=== PATIENT | female | born 2005 | race Caucasian/White ===

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

== ENCOUNTER 2023-08-18 14:16 | Emergency (ER) | payer MEDICAID, SELFPAY ==
--- NOTE | ~2023-08-18 | US_ITS ---
EXAMINATION: US VENOUS WITH DOPPLER UPPER EXTREMITY, LEFT CLINICAL INFORMATION: Bruising, swelling pain COMPARISON: None available. TECHNIQUE: Ultrasound of the upper extremity is performed using compression sonography and color and pulse Doppler flow with assessment of augmentation of flow. There is also imaging and Doppler assessment of the jugular and subclavian veins. Spectral analysis with color-flow imaging is performed. FINDINGS: Respiratory variation, normal compression, and augmented flow are noted throughout the upper extremity including the axillary, brachial, cubital, and radial and ulnar veins. There is normal flow in the internal jugular and subclavian veins. There is no visible deep or superficial thrombophlebitis. If the patient's symptoms progress, a followup ultrasound in 5 -7 days might be of value to exclude proximal propagation from a nonvisualized distal arm vein. US/US venous duplex UE LT IMPRESSION: No DVT demonstrated in the left upper extremity
--- NOTE | 2023-08-18 14:45 | ED_ITS ---
HPI - General Adult General Chief complaint: General Medical Stated complaint: Donated plasma Wed reaction on L arm Related Data Previous Rx's Medication Instructions Recorded amoxicillin 875 mg-potassium 1 tab PO BID pharyngitis 10 days 07/10/21 clavulanate 125 mg tablet #20 tabs (Augmentin) Allergies Allergy/AdvReac Type Severity Reaction Status Date / Time No Known Allergies Allergy Verified 08/18/23 14:49 [facility] Past Medical History Medical History No known health problems Social History Social History Advance Directives: No Advance Directives Information Provided: No Physical Exam ED Vital Signs: BMI result Body Mass Index 33.6 Course Course Course Narrative: This is an RME: Additional HPI, ROS, PE not included below will be deferred to primary provider. This is a 18-year-old female presenting to the emergency department for evaluation of bruising, swelling pain, unable to bend at the elbow since donating plasma last Friday. She states that the bruising occurred 3 days after donating plasma. Increasing swelling and pain. Discussed case with attending physician, Dr. Bolanos, recommends coagulant studies. Further ER evaluation needed. Plan: Labs, ultrasound Reevaluation(s) Reevaluation #1: pt eloped prior to being fully evaluated Medical Decision Making Lab Data 08/18/23 15:01 08/18/23 15:01 Labs: Lab Results 08/18/23 Range/Units 15:01 WBC 9.3 (4.8-10.8) X10*3/uL RBC 4.63 (4.20-5.50) X10*6/uL Hgb 11.4 L (12.0-16.0) g/dl Hct 36.2 L (37.0-47.0) % MCV 78.2 L (80.0-98.0) fL MCH 24.6 L (27.0-33.0) pg MCHC 31.5 (31.0-35.0) g/dl RDW 15.1 (11.0-16.0) % Plt Count 304 (160-400) X10*3/uL MPV 10.6 (9.4-12.3) fL Immature Gran % (Auto) 0.6 H (0.0-0.4) % Neut % (Auto) 64.6 (45-73) % Lymph % (Auto) 26.0 (20-40) % [place] % (Auto) 4.8 (2-11) % Eos % (Auto) 3.6 (0-4) % Baso % (Auto) 0.4 (0-2) % Lymph # (Auto) 2.4 (1.2-4.9) X10*3/uL [place] # (Auto) 0.5 (0.1-1.2) X10*3/uL Eos # (Auto) 0.3 (0.0-0.4) X10*3/uL Baso # (Auto) 0.0 (0.0-0.2) X10*3/uL Abs Immat Gran (auto) 0.06 H (0.00-0.03) X10*3/uL Absolute Neuts (auto) 6.0 (2.0-8.3) x10*3/uL Absolute Nucleated RBC 0.000 (0.0-0.012) X10*3/uL Nucleated RBC % (auto) 0.0 (0.0-0.2) /100WBC PT 12.0 (11.1-13.3) SEC INR 1.0 (0.9-1.1) APTT 36.4 (26.0-36.4) SEC Sodium 139 (135-145) mmol/L Potassium 4.3 (3.3-5.1) mmol/L Chloride 107 (96-108) mmol/L Carbon Dioxide 25 (22-29) mmol/L Anion Gap 11 L (12-20) BUN 10 (9-16) mg/dL Creatinine 0.73 (0.5-1.4) mg/dL Estim Creat Clear Calc 127.8 Estimated GFR > 60 Random Glucose 88 (60-115) mg/dL Calcium 9.2 (8.4-10.2) mg/dL Discharge Plan Discharge Clinical Impression: Arm pain, left Patient Disposition: Left W/O Completing Treatment Prescriptions: No Action amoxicillin-pot clavulanate [Augmentin] 875-125 mg tablet 1 tab PO BID 10 Days Qty: 20 0RF Discharge Date/Time: 08/18/23 19:25
[2023-08-18 14:46] VITALS: BP 136/70; PULSE 74; RESP 18; TEMP 36.4; O2SAT 98; BMI 33.6
[2023-08-18 15:07] LABS: MANUAL DIFF FLAG NO
[2023-08-18 15:08] LABS: Basophils Percent Auto 0.4 % (0-2); Eosinophils Absolute Auto 0.3 X10*3/uL (0.0-0.4); Eosinophils Percent Auto 3.6 % (0-4); Hematocrit 36.2 % (37.0-47.0); Hemoglobin 11.4 g/dl (12.0-16.0); Imm Gran Abs Auto 0.06 X10*3/uL (0.00-0.03); Imm Gran Pct Auto 0.6 % (0.0-0.4); Lymphocytes Absolute Auto 2.4 X10*3/uL (1.2-4.9); Mean Corpuscular HGB Conc 31.5 g/dl (31.0-35.0); Mean Corpuscular Hemoglobin 24.6 pg (27.0-33.0); Mean Corpuscular Volume 78.2 fL (80.0-98.0); Mean Platelet Volume 10.6 fL (9.4-12.3); Monocytes Absolute Auto 0.5 X10*3/uL (0.1-1.2); Monocytes Percent Auto 4.8 % (2-11); Neutrophils Percent Auto 64.6 % (45-73); Platelet Count 304 X10*3/uL (160-400); Red Blood Count 4.63 X10*6/uL (4.20-5.50); Red Cell Distribution Width 15.1 % (11.0-16.0); White Blood Count 9.3 X10*3/uL (4.8-10.8)
[2023-08-18 15:15] LABS: Partial Thromboplastin Time 36.4 SEC (26.0-36.4)
[2023-08-18 15:23] LABS: Anion Gap 11 (12-20); Blood Urea Nitrogen 10 mg/dL (9-16); Calcium 9.2 mg/dL (8.4-10.2); Carbon Dioxide 25 mmol/L (22-29); Chloride 107 mmol/L (96-108); Creatinine Clr Calc Pharmacy 127.8; Estimated Glomerular Filt Rate > 60; Glucose Random 88 mg/dL (60-115); Potassium 4.3 mmol/L (3.3-5.1); Sodium 139 mmol/L (135-145)
== END 2023-08-18 19:25 | disposition left against medical advice (07) ==
PROVIDERS: Physician Assistant Medical; Emergency Provider Emergency Medicine
DX: M79.602 Pain in left arm (principal); R60.0 Localized edema; Z79.899 Other long term (current) drug therapy
CPT/HCPCS: 36415; 80048; 85025; 85610; 85730; 93971; 99281; 99284

== ENCOUNTER 2024-09-09 04:19 | Emergency (ER) | payer SELFPAY ==
[2024-09-09 04:24] VITALS: BP 129/60; PULSE 84; RESP 16; TEMP 36.8; O2SAT 98; BMI 35.4
[2024-09-09 04:42] LABS: Basophils Absolute Auto 0.1 X10*3/uL (0.0-0.2); Basophils Percent Auto 0.3 % (0-2); Eosinophils Absolute Auto 0.2 X10*3/uL (0.0-0.4); Eosinophils Percent Auto 1.4 % (0-4); Hematocrit 35.5 % (37.0-47.0); Imm Gran Abs Auto 0.07 X10*3/uL (0.00-0.03); Imm Gran Pct Auto 0.4 % (0.0-0.4); Lymphocytes Absolute Auto 4.1 X10*3/uL (1.2-4.9); Lymphocytes Percent Auto 26.2 % (20-40); MANUAL DIFF FLAG NO; Mean Corpuscular Hemoglobin 21.5 pg (27.0-33.0); Mean Corpuscular Volume 69.5 fL (80.0-98.0); Mean Platelet Volume 10.6 fL (9.4-12.3); Monocytes Absolute Auto 0.9 X10*3/uL (0.1-1.2); Monocytes Percent Auto 5.5 % (2-11); Neutrophils Absolute Auto 10.4 x10*3/uL (2.0-8.3); Neutrophils Percent Auto 66.2 % (45-73); Platelet Count 341 X10*3/uL (160-400); Red Blood Count 5.11 X10*6/uL (4.20-5.50); White Blood Count 15.7 X10*3/uL (4.8-10.8)
[2024-09-09 04:44] LABS: Appearance Urine Clear; Color Urine Yellow; Glucose Urine UA Negative (Negative); Leukocyte Esterase Urine Moderate (2+) (Negative); Nitrite Urine Positive (Negative); UMIC TRIGGER UACC YES; Urine Blood Negative (Negative); Urine Ketones Negative (Negative); Urine Protein Negative (Neg-Trace)
[2024-09-09 04:45] LABS: UPreg QC Valid YES; Urine Pregnancy NEGATIVE (NEGATIVE)
[2024-09-09 04:48] LABS: Bacteria Urine 3+ (None Seen); Hyaline Casts Urine 0-2 /LPF (0-2); RBC Urine 0-2 /HPF (0-2); UACC Culture Trigger YES; WBC Urine 21-50 /HPF (0-5)
--- NOTE | 2024-09-09 04:48 | PC.NURSE ---
Pt a&ox3, no signs of distress. Pt reports I think I have a UTI Pt reports flank pain, and dysuria, denies n/v. Pts family at bedside Plan of care ongoing
[2024-09-09 05:10] LABS: Alanine Aminotransferase 13 U/L (0-31); Albumin Level 4.3 g/dL (3.5-5.0); Alkaline Phosphatase 74 U/L (39-117); Anion Gap 14 (12-20); Aspartate Amino Transferase 15 U/L (5-31); Bilirubin Total 0.2 mg/dL (0.0-1.0); Blood Urea Nitrogen 11 mg/dL (9-16); Calcium 9.5 mg/dL (8.4-10.2); Carbon Dioxide 20 mmol/L (22-29); Chloride 107 mmol/L (96-108); Creatinine Clr Calc Pharmacy 135.9; Estimated Glomerular Filt Rate > 60; Glucose Random 95 mg/dL (60-115); Potassium 3.7 mmol/L (3.3-5.1); Sodium 137 mmol/L (135-145); Total Protein 7.6 g/dL (6.5-8.0)
[2024-09-09 06:00] VITALS: BP 123/77; PULSE 71; RESP 16; TEMP 36.9; O2SAT 99
--- NOTE | 2024-09-09 06:59 | ED_ITS ---
HPI - Female Genitourinary General Chief complaint: Urogenital-Female Stated complaint: kidney pain, UTI Time Seen by Provider: 09/09/24 06:30 Source: patient Mode of arrival: ambulatory Limitations: no limitations History of Present Illness ED Provider: Denilson Rosa PA-C HPI Narrative: 19 yo female with no significant medical history presents to the ER for evaluation of dysuria, foul smelling urine, cloudy urine, urgency and frequency. She reports symptoms initally started 2 months ago for which she took OTC meds with improvement. Two weeks ago symptoms worsened. She developed low back pain and nausea. No vomiting or fevers. No vaginal discharge. No history of frequent UTIs. She does not have health insurance so delayed seeking care. Denies chance of . MD elicited complaint: UTI Onset (ago): week(s) Location of symptoms: suprapubic and urethra Severity: severe Female Urogenital Radiation: Suprapubic Quality of pain: dull and burning Consistency: constant Vaginal discharge: none Vaginal bleeding: none Urinary symptoms: Dysuria, Urgency, Frequency, Hematuria and Foul Smelling Urine Exacerbating factors: urination Relieving factors: none Associated symptoms: nausea and back pain Treatment prior to arrival: OTC urinary analgesics Sexual activity: Yes Patient : No Related Data Previous Rx's ?Medication ?Instructions ?Recorded amoxicillin 875 mg-potassium 1 tab PO BID pharyngitis 10 days 07/10/21 clavulanate 125 mg tablet #20 tabs (Augmentin) cefuroxime axetil 250 mg tablet 250 mg PO BID 7 days #14 tabs 09/09/24 Allergies Allergy/AdvReac Type Severity Reaction Status Date / Time No Known Allergies Allergy Verified 09/09/24 04:28 Review of Systems 2 Review of Systems: Yes all other systems are reviewed and are negative PMFSH Past Medical History Medical History No known health problems Social History Social History Smoked in Last 30 Days: No Use of substances other than those prescribed or required for medical reasons: Yes Substance Use Type: Marijuana Advance Directives: No Advance Directives Information Provided: No Physical Exam 2 Vital Signs: Vital Signs: Last Vital Signs Temp 98.4 F 09/09/24 06:00 Pulse 71 09/09/24 06:00 Resp 16 09/09/24 06:00 BP 123/77 09/09/24 06:00 Pulse Ox 99 09/09/24 06:00 O2 Del Method Room Air 09/09/24 06:00 BMI result Body Mass Index 35.4 Appearance: Alert. Oriented X3. No acute distress. Head: normocephalic, atraumatic. Eyes: Pupils equal, round and reactive to light. ENT: Pharynx normal. No tonsillar swelling or exudate. Neck: Normal inspection. Neck supple. CVS: Normal heart rate and rhythm. Pulses normal. Respiratory: No respiratory distress. Breath sounds normal. Abdomen: Soft and nontender. +BS x4. No CVA tenderness Skin: Skin warm and dry. Normal skin color. Normal skin turgor. No rashes. Extremities: No lower extremity edema. No joint swelling. Neuro/psych: Oriented X 3. No motor deficit. No sensory deficit. CN II-XII intact. Normal speech and cognition. Medical Decision Making Medical Decision Making [facility] Narrative: 19 yo female presenting with UTI symptoms x2 weeks. No fever or tachycardia on arrival. Labs showing leukocytosis. Renal function normal. UA positive for infection, negative for . No CVA tenderness on exam. PE reassuring. Will treat with ceftin x7 days. patient counseled. return precautions discussed. stable for d/c home Differential Diagnosis Differential Diagnoses: The differential diagnosis associated with the presentation includes UTI, pyelonephritis, STI, Admission/Observation Consideration of admission/observation: Escalation of care including admission/observation considered Lab Data [facility] Lab Attestation statement: I reviewed the patient's lab results. leukocytosis, anemia, normal renal function 09/09/24 04:36 09/09/24 04:36 Labs: Lab Results 09/09/24 Range/Units 04:36 WBC 15.7 H (4.8-10.8) X10*3/uL RBC 5.11 (4.20-5.50) X10*6/uL Hgb 11.0 L (12.0-16.0) g/dl Hct 35.5 L (37.0-47.0) % MCV 69.5 L (80.0-98.0) fL MCH 21.5 L (27.0-33.0) pg MCHC 31.0 (31.0-35.0) g/dl RDW 18.0 H (11.0-16.0) % Plt Count 341 (160-400) X10*3/uL MPV 10.6 (9.4-12.3) fL Immature Gran % (Auto) 0.4 (0.0-0.4) % Neut % (Auto) 66.2 (45-73) % Lymph % (Auto) 26.2 (20-40) % [place] % (Auto) 5.5 (2-11) % Eos % (Auto) 1.4 (0-4) % Baso % (Auto) 0.3 (0-2) % Lymph # (Auto) 4.1 (1.2-4.9) X10*3/uL [place] # (Auto) 0.9 (0.1-1.2) X10*3/uL Eos # (Auto) 0.2 (0.0-0.4) X10*3/uL Baso # (Auto) 0.1 (0.0-0.2) X10*3/uL Abs Immat Gran (auto) 0.07 H (0.00-0.03) X10*3/uL Absolute Neuts (auto) 10.4 H (2.0-8.3) x10*3/uL Absolute Nucleated RBC 0.000 (0.0-0.012) X10*3/uL Nucleated RBC % (auto) 0.0 (0.0-0.2) /100WBC Sodium 137 (135-145) mmol/L Potassium 3.7 (3.3-5.1) mmol/L Chloride 107 (96-108) mmol/L Carbon Dioxide 20 L (22-29) mmol/L Anion Gap 14 (12-20) BUN 11 (9-16) mg/dL Creatinine 0.70 (0.5-1.4) mg/dL Estim Creat Clear Calc 135.9 Estimated GFR > 60 Random Glucose 95 (60-115) mg/dL Calcium 9.5 (8.4-10.2) mg/dL Total Bilirubin 0.2 (0.0-1.0) mg/dL AST 15 (5-31) U/L ALT 13 (0-31) U/L Alkaline Phosphatase 74 (39-117) U/L Total Protein 7.6 (6.5-8.0) g/dL Albumin 4.3 (3.5-5.0) g/dL Urine Color Yellow Urine Appearance Clear Urine pH 7.0 (5.0-9.0) Ur Specific [place] 1.020 (1.005-1.025) Urine Protein Negative (Neg-Trace) mg/dL Urine Glucose (UA) Negative (Negative) mg/dL Urine Ketones Negative (Negative) mg/dL Urine Blood Negative (Negative) Urine Nitrite Positive H (Negative) Ur Leukocyte Esterase Moderate (2+) H (Negative) Urine RBC 0-2 (0-2) /HPF Urine WBC 21-50 H (0-5) /HPF Ur Squamous Epith Cells 11-20 (0-2) /HPF Urine Bacteria 3+ (None Seen) Hyaline Casts 0-2 (0-2) /LPF Urine Test NEGATIVE (NEGATIVE) Independent Historian Clinical information obtained from an independent historian. History obtained from or confirmed by: Spouse External Record Review External record reviewed: Outpatient record and Prior outpatient labs Prescription Management I considered prescription management with: Pain Medication and Antibiotic Social Determinants Patient?s care significantly limited by Social Determinants of Health including: Other Social Determinant of Health (no health insurance) Critical Care Time Critical Care Time Critical Care Time: No Discharge Plan Discharge Clinical Impression: Urinary tract infection Patient Disposition: Home, Self-Care Instructions: Urinary Tract Infection in Women (DC) Additional Instructions: You were found to have a UTI today. Take the prescribed antibiotics as directed. Take the next dose around 07:00 o'clock tonight. Your given the 1st dose today in the ER. Drink plenty of fluids. No sexual activity until your antibiotics are completed and all your symptoms are completely resolved. If you develop new or worsening symptoms call 911 or come back to the ER for further evaluation. Prescriptions: New cefuroxime axetil 250 mg tablet 250 mg PO BID 7 Days Qty: 14 0RF No Action amoxicillin-pot clavulanate [Augmentin] 875-125 mg tablet 1 tab PO BID 10 Days Qty: 20 0RF Stand Alone Forms: Work/School Release Print Language: Cymro
[2024-09-09] MEDS: cefuroxime axetiL 500 MG TABLET PO (07:09)
[2024-09-09 07:11] VITALS: BP 123/77; PULSE 71; RESP 16; TEMP 36.9; O2SAT 99
== END 2024-09-09 07:12 | disposition home or self-care (01) ==
PROVIDERS: Emergency Provider Emergency Medicine
DX: N39.0 Urinary tract infection, site not specified (principal); N23 Unspecified renal colic; R35.0 Frequency of micturition; R30.0 Dysuria; R11.0 Nausea; M54.50 Low back pain, unspecified; R31.9 Hematuria, unspecified
CPT/HCPCS: 36415; 80053; 81001; 81025; 85025; 87086; 99283; 99284

== ENCOUNTER 2024-11-14 22:34 | Emergency (ER) | payer OTHER, SELFPAY ==
[2024-11-14 22:36] VITALS: BP 115/66; PULSE 84; RESP 18; TEMP 36.3; O2SAT 98; BMI 36.3
[2024-11-14 22:53] LABS: IDNOW Serial# 6674DD1D; Strep A Nucleic Acid Negative (Negative)
[2024-11-14 23:23] LABS: Influenza A PCR NEGATIVE (Negative); Influenza B PCR NEGATIVE (Negative); Resp Syncy Virus RNA Qual PCR NEGATIVE (Negative); SARS COV2 PCR INHOUSE NEGATIVE (Negative)
[2024-11-15 00:31] VITALS: BP 121/63; PULSE 81; RESP 16; TEMP 36.6; O2SAT 100
--- NOTE | 2024-11-15 00:34 | ED.URI ---
HPI - URI/Sore Throat General Chief Complaint: Upper Respiratory Symptoms Stated Complaint: cold symptoms Time Seen by Provider: 11/15/24 00:34 Source: patient Mode of arrival: ambulatory History of Present Illness ED Provider: HPI Narrative: Patient has been complaining of nasal congestion sore throat for last 1 month with rotation cough no fever no chills patient has had COVID flu RSV and strep test before my evaluation which was negative Related Data Previous Rx's ?Medication ?Instructions ?Recorded amoxicillin 875 mg-potassium 1 tab PO BID pharyngitis 10 days 07/10/21 clavulanate 125 mg tablet #20 tabs (Augmentin) cefuroxime axetil 250 mg tablet 250 mg PO BID 7 days #14 tabs 09/09/24 amoxicillin 875 mg-potassium 1 tab PO BID #20 tabs 11/15/24 clavulanate 125 mg tablet Allergies Allergy/AdvReac Type Severity Reaction Status Date / Time No Known Allergies Allergy Verified 11/14/24 22:39 Review of Systems Review of Systems: Yes all other systems are reviewed and are negative [facility] Past Medical History Medical History No known health problems Social History Social History Alcohol intake: never Substance Use Type: Marijuana Physical Exam Vital Signs: Vital Signs: Last Vital Signs Temp 97.9 F 11/15/24 00:31 Pulse 81 11/15/24 00:31 Resp 16 11/15/24 00:31 BP 121/63 11/15/24 00:31 Pulse Ox 100 11/15/24 00:31 O2 Del Method Room Air 11/15/24 00:31 BMI result Body Mass Index 36.3 Appearance: Alert. Oriented X3. No acute distress. ENT: Pharynx normal. Oral Mucosa moist inflamed nasal turbinate Neck: Normal inspection. Neck supple. CVS: Normal heart rate and rhythm. Pulses normal. Respiratory: No respiratory distress. Equal air entry bilateral, no wheezing/rales/rhonchi Skin: Skin warm and dry. Normal skin color. Normal skin turgor. Extremities: No lower extremity edema. Neuro: Oriented X 3. Medical Decision Making Lab Data MDM Lab Attestation statement: I reviewed the patient's lab results. Labs: Lab Results 11/14/24 Range/Units 22:41 Influenza Type A (PCR) NEGATIVE (Negative) Influenza Type B (PCR) NEGATIVE (Negative) RSV RNA Qual (PCR) NEGATIVE (Negative) SARS-CoV-2 RNA (RT-PCR) NEGATIVE (Negative) S. pyogenes GrpA ELI Negative (Negative) Discharge Plan Discharge Clinical Impression: Acute rhinosinusitis Patient Disposition: Home, Self-Care Instructions: Rhinosinusitis (DC) Additional Instructions: Take antibiotics as prescribed Follow with your PCP if not better Prescriptions: New amoxicillin-pot clavulanate 875-125 mg tablet 1 tab PO BID Qty: 20 0RF No Action amoxicillin-pot clavulanate [Augmentin] 875-125 mg tablet 1 tab PO BID 10 Days Qty: 20 0RF cefuroxime axetil 250 mg tablet 250 mg PO BID 7 Days Qty: 14 0RF Print Language: Solomon Islander
--- OUTSIDE RECORDS SUMMARY | 2024-11-15 00:40 | XMS_ITS | Encounter Summary ---
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 Name Role Phone Nadiya Sharp MD Primary Care Provider [phone] Reason for Visit * Reason Onset Date Comments new patient 11/14/2023 Encounter Details Date Type Department Care Team ([facility] st Contact Info) Description 11/14/2023 Telephone [facility] [address] [place] [address] Nadiya Sharp MD [address] [place] [address] new patient Social History Tobacco Use Types Packs/Day Years Used Date Smoking Tobacco: Never Assessed Comments Unknown Sex and Gender Information Value Date Recorded Sex Assigned at Female 08/19/2022 10:20 AM EDT Legal Sex Female 10:20 AM EDT Gender Identity Not on file Sexual Orientation Straight 08/19/2022 10 :20 AM EDT documented as of this encounter Miscellaneous Notes * Telephone Encounter - Danielle Shay - 11/14/2023 10:05 AM EST Tc from pt requesting a PE appt needs for school. Pt last seen on 08/19/[address] Leger. Presales Engineer booked pt NEW PATIENT appt for 11/17/23 @ 1pm with SUPERVISOR WEAVING Randi Denney. Pt is a returning patient. documented in this encounter Plan of Treatment Not on file documented as of this encounter Visit Diagnoses Not on filedocumented in this encounter Care Teams Rubber Extrusion Machine Operator Relationship Specialty Start Date End Date Nadiya Sharp MD [address] [place] [id number] PCP - General Pediatrics 03/08/20 11/19/23 documented as of this encounter
[2024-11-15] MEDS: Amoxicillin/Potassium Clav 875 MG TABLET PO (00:50)
[2024-11-15 00:52] VITALS: BP 121/63; PULSE 81; RESP 16; TEMP 36.6; O2SAT 100
== END 2024-11-15 00:52 | disposition home or self-care (01) ==
PROVIDERS: Emergency Provider Internal Medicine
DX: J01.90 Acute sinusitis, unspecified (principal); J02.9 Acute pharyngitis, unspecified; R05.9 Cough, unspecified; Z03.818 Encounter for observation for suspected exposure to other biological agents ruled out
CPT/HCPCS: 0241U; 87651; 99283; 99284

== ENCOUNTER 2025-07-25 17:21 | Emergency (ER) | payer OTHER, SELFPAY ==
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
[2025-07-25 17:44] VITALS: BP 148/72; PULSE 71; RESP 16; TEMP 36.2; O2SAT 98; BMI 35.9
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
--- OUTSIDE RECORDS SUMMARY | 2025-07-25 19:32 | XMS_ITS | Clinical Summary ---
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 Role Phone Unavailable Primary Care Provider Unavailabl e Social History Tobacco Use Types Packs/Day Years Used Date Smoking Tobacco: Never Assessed Comments Unknown Sex and Gender Information Value Date Recorded Sex Assigned at Female 08/19/2022 10:20 AM EDT Legal Sex Female 10:20 AM EDT Gender Identity Not on file Sexual Orientation Straight 08/19/2022 10 :20 AM EDT Plan of Treatment Health Maintenance Due Date Last Done Comments Chlamydia and Gonorrhea Screening 2003 Depression Screening 2003 HIV Screening 2003 SDOH Screening 2003 Disability Screening 2003 Alcohol/Substance Use Screening 2015 Tobacco Screening 2015 Family Planning (PISQ) 2018 Meningococcal B Vaccine (1 of 2 - Standard) 2019 Hepatitis C Screening 2021 Pap Smear 2024 COVID-19 Vaccine ( season) 2025 03/08/2021, 02/15/2021 Influenza Vaccine (#1) 2025 6, 07/06/2015, 07/14/2009 DTaP/Tdap/Td Vaccines (6 - Td or Tdap) 07/06/2025 07/06/2015, 11/17/2009, 05/18/2009, Additional history exists Zoster Vaccines (1 of 2) 2053 RSV Patients and Patients Aged 60 years or older (1 - 1-dose 75+ series) 2078 Hepatitis B Vaccines Completed 05/13/2009, 02/02/2009, 12/19/2008, Additional history exists Hepatitis A Vaccines Completed 07/14/2009, 12/20/19 09 Meningococcal Vaccine Aged Out 07/06/2015 No tim ellen eligible based on patient's age to complete this topic HPV Vaccines Completed 08/19/2016, 08/20, 07/06/2015 IPV Vaccines Completed 08/19/2016, 04/21, 02/02/2009, Additional history exists HIB Vaccines Aged Out No longer eligi ble based on patient's age to complete this topic Pneumococcal Vaccine: Pediatrics (0 to 5 Years) and At-Risk Patients (6 to 49) Years Aged Out No longer eligible based on patient's age to complete this topic RSV under 20 months Aged Out No longe r eligible based on patient's age to complete this topic Rotavirus Vaccines Aged Out No longer eligible based on patient's age to complete this topic Insurance [facility] C3
[2025-07-25 20:17] VITALS: BP 148/72; PULSE 71; RESP 16; TEMP 36.2; O2SAT 98
== END 2025-07-25 20:17 | disposition home or self-care (01) ==
PROVIDERS: Emergency Provider Student in an Organized Health Care Education/Training Program
DX: S09.90XA Unspecified injury of head, initial encounter (principal); Y04.2XXA Assault by strike against or bumped into by another person, initial encounter; Y93.F9 Activity, other caregiving; Y92.239 Unspecified place in hospital as the place of occurrence of the external cause; Y99.0 Civilian activity done for income or pay; R51.9 Headache, unspecified
CPT/HCPCS: 70450; 70486; 72125; 99282; 99284

== ENCOUNTER → 2025-07-25 17:46 | Outpatient (BNV) | payer OTHER, SELFPAY | PROVIDERS: Emergency Provider Student in an Organized Health Care Education/Training Program; Visit Provider Radiology Diagnostic Radiology | DX: Z04.3 Encounter for examination and observation following other accident (principal); J34.2 Deviated nasal septum; J34.89 Other specified disorders of nose and nasal sinuses; R51.9 Headache, unspecified; Y04.2XXA Assault by strike against or bumped into by another person, initial encounter | CPT/HCPCS: 70450; 70486; 72125 ==